=== PATIENT | male | born 1985 ===

== ENCOUNTER → 2018-03-05 | Emergency (ER) | payer OTHER ==
[~2018-03-05] VITALS: Ht 177.8 cm; Wt 65.8 kg
[~2018-03-05] MED LIST: INTESTINEX680 M1 PO; ZANTAC150 MG PO
== END | disposition home or self-care (01) ==
LOC: ER 08:56
DX: K29.70 Gastritis, unspecified, without bleeding (principal); R63.0 Anorexia